=== PATIENT | male | born 2000 | race Caucasian/White ===

== ENCOUNTER 2022-04-11 21:19 | Emergency (ER) | payer OTHER ==
[~2022-04-11] VITALS: Ht 177.8 cm; Wt 84.1 kg
[2022-04-11 21:24] VITALS: TEMP 98.7
[2022-04-11 22:34] VITALS: BP 133/86; PULSE 84
[2022-04-11] MEDS ORDERED: ZOFRAN 4MG T4 MG/TAB PO (22:37)
== END 2022-04-11 22:34 | disposition home or self-care (01) ==
LOC: COL.ER 21:19
DX: S06.9X9A Unspecified intracranial injury with loss of consciousness of unspecified duration, initial encounter (principal); S01.81XA Laceration without foreign body of other part of head, initial encounter; Z28.310 Unvaccinated for COVID-19; W50.0XXA Accidental hit or strike by another person, initial encounter; Y93.61 Activity, american tackle football